=== PATIENT | female | born 1995 | race Caucasian/White ===

== ENCOUNTER 2022-12-01 08:46 | Emergency (ER) | payer MEDICAID ==
[~2022-12-01] VITALS: Ht 162.6 cm; Wt 65.7 kg
[2022-12-01 09:21] VITALS: BP 113/64
== END 2022-12-01 14:01 | disposition left against medical advice (07) ==
LOC: ER 08:46
DX: S81.812D Laceration without foreign body, left lower leg, subsequent encounter (principal); Z53.21 Procedure and treatment not carried out due to patient leaving prior to being seen by health care provider; X58.XXXD Exposure to other specified factors, subsequent encounter

== ENCOUNTER 2023-11-17 19:26 | Emergency (ER) | payer MEDICAID ==
[~2023-11-17] VITALS: Ht 162.6 cm; Wt 71.8 kg
[~2023-11-17 19:26] MED LIST: CEPH500C PO
[2023-11-17 20:01] VITALS: BP 138/69; PULSE 73; RESP 14; O2SAT 98
[2023-11-17 20:37] LABS: Urine Bacteria None Seen /hpf (None Seen)
[2023-11-17 21:43] LABS: Urine Amorphous Crystal FEW /hpf (None Seen); Urine Blood Negative /uL (Negative); Urine Clarity Clear (Clear); Urine Color Colorless (Yellow); Urine Protein, UAD Negative (Negative); Urine Specific Gravity 1.005 (1.001-1.035); Urine Urobilinogen Normal (Negative); Urine WBC 2 /hpf (0 - 5)
== END 2023-11-18 00:24 | disposition home or self-care (01) ==
LOC: ER 19:26
DX: O46.91 Antepartum hemorrhage, unspecified, first trimester (principal); Z3A.01 Less than 8 weeks gestation of pregnancy; R10.2 Pelvic and perineal pain
CPT/HCPCS: 36415; 81001; 84702